=== PATIENT | male | born 1990 | race Caucasian/White ===

== ENCOUNTER 2022-11-10 21:33 | Emergency (ER) | payer OTHER ==
[2022-11-10] MEDS ORDERED: Ibuprofen 600 MG Tab PO ONE (22:18)
== END 2022-11-10 22:27 | disposition home or self-care (01) ==
LOC: MW.ED 21:33
DX: R07.89 Other chest pain (principal); M54.6 Pain in thoracic spine; V49.40XA Driver injured in collision with unspecified motor vehicles in traffic accident, initial encounter; Y92.410 Unspecified street and highway as the place of occurrence of the external cause
CPT/HCPCS: 99283; A9270